=== PATIENT | female | born 1965 | race Caucasian/White ===

== ENCOUNTER 2018-09-14 17:23 | Emergency (ER) | payer BC ==
[~2018-09-14] VITALS: Ht 170.2 cm; Wt 94.1 kg
[~2018-09-14 17:23] MED LIST: ALBU6.7H INH; ANAS1TAB PO; ASPI-611 PO; CA C1TAB89 PO; HYDR-4383 PO; LANTUS SUBCUT; LOSA100T3 PO; MULT-342 PO; OMEP20CA10 PO; TRAZ-219 PO; ZOL50T PO
[2018-09-14 17:28] VITALS: BP 197/114
[2018-09-14] MEDS ORDERED: ipratropium/albuterol 3ml nebule NEB ONE (17:50)
[2018-09-14 17:59] LABS: BASOPHILS # (AUTO) 0.1 X10'3 (0-0.2); EOSINOPHILS # (AUTO) 0.2 X10'3 (0-0.9); EOSINOPHILS % (AUTO) 2.4 % (0-6); HEMATOCRIT 40.4 % (35.0-45.0); HEMOGLOBIN 13.5 g/dl (12.0-16.0); LYMPHOCYTES # (AUTO) 2.3 X10'3 (1.1-4.8); LYMPHOCYTES % (AUTO) 35.8 % (21-51); MEAN CORPUSCULAR HEMOGLOBIN 26.8 PG (27.0-31.0); MEAN CORPUSCULAR HGB CONC 33.4 g/dL (33.0-36.5); MEAN CORPUSCULAR VOLUME 80.2 FL (78-98); MONOCYTES # (AUTO) 0.5 X10'3 (0-0.9); MONOCYTES % (AUTO) 7.7 % (2-12); NEUTROPHILS # (AUTO) 3.4 X10'3 (1.8-7.7); NEUTROPHILS % (AUTO) 53.1 % (42-75); PLATELET COUNT 214 X10'3 (140-440); RED BLOOD COUNT 5.04 X10'6 (4.20-5.60); RED CELL DISTRIBUTION WIDTH 13.5 % (11.5-14.5); WHITE BLOOD COUNT 6.5 X10'3 (4.5-11.0)
[2018-09-14 18:12] LABS: ALANINE AMINOTRANSFERASE 23 U/L (12-78); ALBUMIN 3.6 G/DL (3.4-5.0); ALKALINE PHOSPHATASE 105 IU/L (46-116); ANION GAP 11 (8-16); ASPARTATE AMINO TRANSFERASE 13 U/L (10-37); BILIRUBIN,TOTAL 0.4 MG/DL (0.1-1.0); BLOOD UREA NITROGEN 14 MG/DL (7-18); BUN/CREATININE RATIO 14.1 (6.6-38.0); CALCIUM 8.6 MG/DL (8.5-10.1); CHLORIDE 105 MMOL/L (99-107); CREATININE 0.99 MG/DL (0.40-0.90); GLUCOSE 208 MG/DL (70-104); POTASSIUM 3.3 MMOL/L (3.5-5.1); SODIUM 141 MMOL/L (135-145); TOTAL CARBON DIOXIDE 24.6 MMOL/L (24-32); TOTAL PROTEIN 7.3 G/DL (6.4-8.2); eGFR 58 ML/MIN
[2018-09-14] MEDS ORDERED: AZIT250T83 PO (19:04)
[2018-09-14] MEDS ORDERED: PRED20TA PO (19:04)
[2018-09-14] MEDS ORDERED: prednisone 10mg tablet PO SCH (19:05)
[2018-09-14] MEDS ORDERED: predniSONE 20 mg tablet PO ONE (19:10)
[2018-09-14] MEDS ORDERED: GUAI237S46 PO (19:16)
[2018-09-14] MEDS ORDERED: BENZ-16 PO (19:16)
== END 2018-09-14 20:08 | disposition home or self-care (01) ==
LOC: ER 17:23
DX: R05 Cough (principal); R06.00 Dyspnea, unspecified; R19.7 Diarrhea, unspecified; R50.9 Fever, unspecified; I10 Essential (primary) hypertension; E11.9 Type 2 diabetes mellitus without complications; J45.909 Unspecified asthma, uncomplicated; Z90.710 Acquired absence of both cervix and uterus; Z88.2 Allergy status to sulfonamides; Z88.8 Allergy status to other drugs, medicaments and biological substances; Z79.82 Long term (current) use of aspirin; Z79.4 Long term (current) use of insulin; Z79.899 Other long term (current) drug therapy; Z87.891 Personal history of nicotine dependence
CPT/HCPCS: 36415; 71046; 80053; 83605; 85025; 87040; 94640; 94760; 99284; J7512

== ENCOUNTER 2019-02-20 20:11 | Emergency (ER) | payer BC ==
[~2019-02-20] VITALS: Ht 170.2 cm; Wt 94.5 kg
[~2019-02-20 20:11] MED LIST changes: -ALBU6.7H INH; +ALBU6.7H9 INH; -OMEP20CA10 PO; +OMEP20CA11 PO; +SERT-153 PO; -ZOL50T PO
[2019-02-20 20:43] LABS: BASOPHILS # (AUTO) 0.1 X10'3 (0-0.2); BASOPHILS % (AUTO) 0.6 % (0-1); EOSINOPHILS # (AUTO) 0.2 X10'3 (0-0.9); EOSINOPHILS % (AUTO) 1.3 % (0-6); HEMATOCRIT 41.5 % (35.0-45.0); HEMOGLOBIN 13.8 g/dl (12.0-16.0); LYMPHOCYTES # (AUTO) 2.7 X10'3 (1.1-4.8); LYMPHOCYTES % (AUTO) 21.7 % (21-51); MEAN CORPUSCULAR HEMOGLOBIN 27.4 PG (27.0-31.0); MEAN CORPUSCULAR HGB CONC 33.3 g/dL (33.0-36.5); MEAN CORPUSCULAR VOLUME 82.1 FL (78-98); MEAN PLATELET VOLUME 8.4 FL (7.4-10.4); MONOCYTES # (AUTO) 0.9 X10'3 (0-0.9); MONOCYTES % (AUTO) 7.3 % (2-12); NEUTROPHILS # (AUTO) 8.7 X10'3 (1.8-7.7); NEUTROPHILS % (AUTO) 69.1 % (42-75); PLATELET COUNT 259 X10'3 (140-440); RED BLOOD COUNT 5.06 X10'6 (4.20-5.60); RED CELL DISTRIBUTION WIDTH 13.3 % (11.5-14.5); WHITE BLOOD COUNT 12.6 X10'3 (4.5-11.0)
[2019-02-20 20:45] LABS: CLARITY,URINE CLOUDY (Clear); COLOR,URINE Yellow (Yellow); UA COLLECTION TYPE CLN CATCH MIDSTREAM
[2019-02-20 20:46] LABS: URINE HCG NEGATIVE (NEG)
[2019-02-20 20:47] LABS: GLUCOSE, URINE NEGATIVE (Neg); KETONES,URINE TRACE mg/dl (Neg); LEUKOCYTE ESTERASE ,URINE SMALL (Neg); NITRITES, URINE NEGATIVE (Neg); OCCULT BLOOD,URINE MODERATE (Neg); PROTEIN,URINE 100 mg/dl (Neg)
[2019-02-20 20:52] LABS: BACTERIA,URINE 1+ /HPF (Neg); MUCUS STRANDS FEW /LPF (Neg); RBC,URINE 0-2 /HPF (0-2); SQUAMOUS EPITHELIAL CELL,UR MODERATE /LPF (FEW); WBC,URINE 30-50 /HPF (0-4)
[2019-02-20 20:59] LABS: ALANINE AMINOTRANSFERASE 28 U/L (12-78); ALBUMIN 3.9 G/DL (3.4-5.0); ALBUMIN/GLOBULIN RATIO 1.1 (1.1-1.5); ALKALINE PHOSPHATASE 104 IU/L (46-116); ANION GAP 12 (8-16); ASPARTATE AMINO TRANSFERASE 14 U/L (10-37); BILIRUBIN,TOTAL 0.6 MG/DL (0.1-1.0); BLOOD UREA NITROGEN 14 MG/DL (7-18); BUN/CREATININE RATIO 12.8 (6.6-38.0); CALCIUM 8.9 MG/DL (8.5-10.1); CHLORIDE 105 MMOL/L (99-107); CREATININE 1.09 MG/DL (0.40-0.90); GLUCOSE 157 MG/DL (70-104); POTASSIUM 3.2 MMOL/L (3.5-5.1); SODIUM 144 MMOL/L (135-145); TOTAL CARBON DIOXIDE 27.1 MMOL/L (24-32); TOTAL PROTEIN 7.5 G/DL (6.4-8.2); eGFR 52 ML/MIN
[2019-02-20 22:30] VITALS: BP_SYST 191
[2019-02-20] MEDS ORDERED: normal saline 1000ML IV soln IVB ONE (22:40)
[2019-02-20 22:43] LABS: MAGNESIUM 1.8 MG/DL (1.5-2.4)
[2019-02-20 22:45] LABS: ETHANOL < 0.010 GM/DL (0.0-0.010)
[2019-02-20] MEDS ORDERED: morphine 4 MG/ML inj SYRINge IV ONE (22:45)
[2019-02-20] MEDS ORDERED: amLODIPine 5mg tablet PO ONE (22:45)
[2019-02-20] MEDS ORDERED: magnesium oxide 400mg tablet PO ONE (22:45)
[2019-02-20] MEDS ORDERED: potassium Cl 20 mEq SR tablet PO ONE (22:45)
[2019-02-20] MEDS ORDERED: magnesium 2GM in 50ml NS 50 ML IV ONE (22:45)
[2019-02-20] MEDS ORDERED: metroNIDAZOLE 500mg tablet PO ONE (22:45)
[2019-02-20] MEDS ORDERED: morphine 2 MG/ML inj. syringe IV PRN (22:45)
[2019-02-20] MEDS ORDERED: ketorolac tromethamine 15mg/ml inj. IV ONE (22:45)
[2019-02-20] MEDS ORDERED: ciprofloxacin 250mg tablet PO ONE (22:45)
[2019-02-20] MEDS ORDERED: METR250T PO (22:46)
[2019-02-20] MEDS ORDERED: CIPR-230 PO (22:46)
--- NOTE | 2019-02-20 23:13 | NUR ---
Magnesium hung at ordered rate and checked with Dr. Mcmahon if he wanted it to run over 2 hours. He wants the magnesium given as a bolus. Dr. Mcmahon at bedside performing magnesium bolus.
[2019-02-20 23:59] VITALS: BP_DIAS 172
== END 2019-02-21 00:03 | disposition home or self-care (01) ==
LOC: ER 20:11
DX: K57.92 Diverticulitis of intestine, part unspecified, without perforation or abscess without bleeding (principal); E87.6 Hypokalemia; I10 Essential (primary) hypertension; E11.9 Type 2 diabetes mellitus without complications; Z90.710 Acquired absence of both cervix and uterus; Z85.3 Personal history of malignant neoplasm of breast; Z88.2 Allergy status to sulfonamides; Z88.8 Allergy status to other drugs, medicaments and biological substances; Z79.82 Long term (current) use of aspirin; Z79.4 Long term (current) use of insulin; Z79.899 Other long term (current) drug therapy
CPT/HCPCS: 36415; 80053; 80320; 81001; 81025; 83735; 85025; 85610; 87077; 87088; 87186; 96365; 96375; 99284; J1885; J2270; J3475; J7030; J3490

== ENCOUNTER 2019-02-23 19:32 | Emergency (ER) | payer BC ==
[~2019-02-23] VITALS: Ht 170.2 cm; Wt 95.5 kg
[~2019-02-23 19:32] MED LIST changes: +CIPR-230 PO; +METR250T PO
[2019-02-23 19:39] VITALS: BP 176/87
[2019-02-23] MEDS ORDERED: HYDROcodone/acetaminophen 10/325mg tab PO STA (20:07)
--- NOTE | 2019-02-23 20:26 | NUR ---
pt did not want Mcgrady, tylenol, or ibuprofen. she would like to wait to speak with
== END 2019-02-23 22:12 | disposition home or self-care (01) ==
LOC: ER 19:33
DX: S92.511A Displaced fracture of proximal phalanx of right lesser toe(s), initial encounter for closed fracture (principal); R23.3 Spontaneous ecchymoses; I10 Essential (primary) hypertension; E11.9 Type 2 diabetes mellitus without complications; Z85.3 Personal history of malignant neoplasm of breast; Z90.710 Acquired absence of both cervix and uterus; Z98.890 Other specified postprocedural states; Z88.2 Allergy status to sulfonamides; Z88.8 Allergy status to other drugs, medicaments and biological substances; Z79.82 Long term (current) use of aspirin; Z79.4 Long term (current) use of insulin; Z79.899 Other long term (current) drug therapy; W22.8XXA Striking against or struck by other objects, initial encounter; Y93.89 Activity, other specified; Y92.89 Other specified places as the place of occurrence of the external cause; Y99.8 Other external cause status
CPT/HCPCS: 73660; 99284

== ENCOUNTER 2019-03-20 11:53 | Emergency (ER) | payer BC ==
[~2019-03-20] VITALS: Ht 170.2 cm; Wt 94.5 kg
[~2019-03-20 11:53] MED LIST changes: -METR250T PO
[2019-03-20] MEDS ORDERED: ALBU8.5H8 IH (13:25)
[2019-03-20] MEDS ORDERED: AMOX-580 PO (13:25)
[2019-03-20 13:50] VITALS: BP 186/102
== END 2019-03-20 13:57 | disposition home or self-care (01) ==
LOC: ER 11:54
DX: L02.31 Cutaneous abscess of buttock (principal); R05 Cough; F17.200 Nicotine dependence, unspecified, uncomplicated; I10 Essential (primary) hypertension; E11.9 Type 2 diabetes mellitus without complications; Z90.710 Acquired absence of both cervix and uterus; Z98.890 Other specified postprocedural states; Z85.3 Personal history of malignant neoplasm of breast; Z88.2 Allergy status to sulfonamides; Z88.8 Allergy status to other drugs, medicaments and biological substances; Z79.4 Long term (current) use of insulin; Z79.899 Other long term (current) drug therapy
CPT/HCPCS: 99283

== ENCOUNTER 2019-03-23 16:41 | Emergency (ER) | payer BC ==
[~2019-03-23] VITALS: Ht 170.2 cm; Wt 94.0 kg
[~2019-03-23 16:41] MED LIST changes: +ALBU8.5H8 IH; +AMOX-580 PO
[2019-03-23 16:44] VITALS: BP 191/95
== END 2019-03-23 17:20 | disposition home or self-care (01) ==
LOC: ER 16:41
DX: L02.31 Cutaneous abscess of buttock (principal); Z48.00 Encounter for change or removal of nonsurgical wound dressing; I10 Essential (primary) hypertension; E11.9 Type 2 diabetes mellitus without complications; C50.919 Malignant neoplasm of unspecified site of unspecified female breast; Z88.2 Allergy status to sulfonamides; Z88.8 Allergy status to other drugs, medicaments and biological substances; Z79.2 Long term (current) use of antibiotics; Z79.82 Long term (current) use of aspirin; Z79.4 Long term (current) use of insulin; Z79.899 Other long term (current) drug therapy; Z90.710 Acquired absence of both cervix and uterus; Z98.890 Other specified postprocedural states
CPT/HCPCS: 99281

== ENCOUNTER 2019-06-06 15:27 | Emergency (ER) | payer BC ==
[~2019-06-06] VITALS: Ht 170.2 cm; Wt 94.5 kg
[~2019-06-06 15:27] MED LIST changes: -AMOX-580 PO; -CIPR-230 PO
[2019-06-06 15:31] VITALS: BP 146/95
== END 2019-06-06 17:10 | disposition home or self-care (01) ==
LOC: ER 15:27
DX: I83.93 Asymptomatic varicose veins of bilateral lower extremities (principal); I10 Essential (primary) hypertension; E11.9 Type 2 diabetes mellitus without complications; Z90.710 Acquired absence of both cervix and uterus; Z98.890 Other specified postprocedural states; Z85.3 Personal history of malignant neoplasm of breast; Z88.2 Allergy status to sulfonamides; Z88.1 Allergy status to other antibiotic agents; Z79.82 Long term (current) use of aspirin; Z79.4 Long term (current) use of insulin; Z79.899 Other long term (current) drug therapy; Z88.8 Allergy status to other drugs, medicaments and biological substances
CPT/HCPCS: 93971; 99284

== ENCOUNTER 2020-08-05 12:53 | Emergency (ER) | payer BC, MEDICAID ==
[~2020-08-05] VITALS: Ht 167.6 cm; Wt 88.6 kg
[~2020-08-05 12:53] MED LIST changes: -OMEP20CA11 PO; +OMEP20CA15 PO; -TRAZ-219 PO; +TRAZ-256 PO
[2020-08-05 13:33] LABS: BASOPHILS % (AUTO) 0.5 % (0-1); EOSINOPHILS # (AUTO) 0.1 X10'3 (0-0.9); EOSINOPHILS % (AUTO) 1.4 % (0-6); HEMATOCRIT 40.5 % (35.0-45.0); HEMOGLOBIN 13.9 g/dl (12.0-16.0); LYMPHOCYTES % (AUTO) 24.8 % (21-51); MEAN CORPUSCULAR HEMOGLOBIN 27.8 PG (27.0-31.0); MEAN CORPUSCULAR HGB CONC 34.2 g/dL (33.0-36.5); MEAN CORPUSCULAR VOLUME 81.2 FL (78-98); MEAN PLATELET VOLUME 7.9 FL (7.4-10.4); MONOCYTES # (AUTO) 0.7 X10'3 (0-0.9); MONOCYTES % (AUTO) 8.8 % (2-12); NEUTROPHILS # (AUTO) 5.3 X10'3 (1.8-7.7); NEUTROPHILS % (AUTO) 64.5 % (42-75); PLATELET COUNT 234 X10'3 (140-440); RED BLOOD COUNT 4.99 X10'6 (4.20-5.60); RED CELL DISTRIBUTION WIDTH 13.5 % (11.5-14.5); WHITE BLOOD COUNT 8.2 X10'3 (4.5-11.0)
[2020-08-05 13:51] LABS: ALANINE AMINOTRANSFERASE 21 U/L (12-78); ALBUMIN 3.8 G/DL (3.4-5.0); ALKALINE PHOSPHATASE 98 IU/L (46-116); ANION GAP 6 (8-16); ASPARTATE AMINO TRANSFERASE 10 U/L (10-37); BILIRUBIN,TOTAL 0.5 MG/DL (0.1-1.0); BLOOD UREA NITROGEN 14 MG/DL (7-18); BUN/CREATININE RATIO 18.9 (6.6-38.0); CALCIUM 9.4 MG/DL (8.5-10.1); CHLORIDE 104 MMOL/L (99-107); CREATININE 0.74 MG/DL (0.40-0.90); GLUCOSE 141 MG/DL (70-104); POTASSIUM 3.9 MMOL/L (3.5-5.1); SODIUM 140 MMOL/L (135-145); TOTAL CARBON DIOXIDE 29.8 MMOL/L (24-32); TOTAL PROTEIN 7.6 G/DL (6.4-8.2); eGFR 81 ML/MIN
[2020-08-05 14:46] VITALS: BP 156/96
== END 2020-08-05 14:40 | disposition home or self-care (01) ==
LOC: ER 12:55
DX: R07.89 Other chest pain (principal); R51.9 Headache, unspecified; R42 Dizziness and giddiness; I10 Essential (primary) hypertension; E11.9 Type 2 diabetes mellitus without complications; F12.90 Cannabis use, unspecified, uncomplicated; Z85.3 Personal history of malignant neoplasm of breast; Z90.710 Acquired absence of both cervix and uterus; Z87.891 Personal history of nicotine dependence; Z88.2 Allergy status to sulfonamides; Z88.8 Allergy status to other drugs, medicaments and biological substances; Z79.4 Long term (current) use of insulin; Z79.82 Long term (current) use of aspirin; Z79.899 Other long term (current) drug therapy
CPT/HCPCS: 36415; 71045; 80053; 83880; 84484; 85025; 93005; 99285

== ENCOUNTER 2020-09-28 20:20 | Emergency (ER) | payer OTHER, MEDICAID ==
[~2020-09-28] VITALS: Ht 167.6 cm; Wt 95.5 kg
[2020-09-28 21:24] LABS: BASOPHILS # (AUTO) 0.1 X10'3 (0-0.2); BASOPHILS % (AUTO) 0.5 % (0-1); EOSINOPHILS # (AUTO) 0.2 X10'3 (0-0.9); EOSINOPHILS % (AUTO) 1.5 % (0-6); HEMATOCRIT 39.2 % (35.0-45.0); HEMOGLOBIN 13.2 g/dl (12.0-16.0); LYMPHOCYTES # (AUTO) 2.8 X10'3 (1.1-4.8); LYMPHOCYTES % (AUTO) 23.7 % (21-51); MEAN CORPUSCULAR HEMOGLOBIN 27.5 PG (27.0-31.0); MEAN CORPUSCULAR HGB CONC 33.6 g/dL (33.0-36.5); MEAN CORPUSCULAR VOLUME 81.8 FL (78-98); MEAN PLATELET VOLUME 8.2 FL (7.4-10.4); MONOCYTES # (AUTO) 1.1 X10'3 (0-0.9); MONOCYTES % (AUTO) 9.1 % (2-12); NEUTROPHILS # (AUTO) 7.8 X10'3 (1.8-7.7); NEUTROPHILS % (AUTO) 65.2 % (42-75); PLATELET COUNT 250 X10'3 (140-440); RED BLOOD COUNT 4.79 X10'6 (4.20-5.60); RED CELL DISTRIBUTION WIDTH 13.3 % (11.5-14.5)
[2020-09-28 21:32] LABS: CLARITY,URINE CLEAR (Clear); COLOR,URINE YELLOW (Yellow); GLUCOSE, URINE NEGATIVE (Neg); KETONES,URINE NEGATIVE (Neg); LEUKOCYTE ESTERASE ,URINE SMALL (Neg); NITRITES, URINE NEGATIVE (Neg); OCCULT BLOOD,URINE MODERATE (Neg); PH,URINE 5.5 (4.8-8.0); PROTEIN,URINE NEGATIVE (Neg); UROBILINOGEN,URINE 0.2 E.U/dL (0.2-1.0)
[2020-09-28] MEDS ORDERED: ondansetron 4mg rapidly disintigrating tab PO ONE (21:40)
[2020-09-28] MEDS: HYDROcodone/acetaminophen 10/325mg tab PO ONE ×2 (21:40→22:09)
[2020-09-28 21:41] LABS: UA COLLECTION TYPE CLN CATCH MIDSTREAM
[2020-09-28 21:42] LABS: ALANINE AMINOTRANSFERASE 21 U/L (12-78); ALBUMIN 3.6 G/DL (3.4-5.0); ALKALINE PHOSPHATASE 103 IU/L (46-116); ANION GAP 10 (8-16); ASPARTATE AMINO TRANSFERASE 10 U/L (10-37); BILIRUBIN,TOTAL 0.4 MG/DL (0.1-1.0); BLOOD UREA NITROGEN 14 MG/DL (7-18); BUN/CREATININE RATIO 13.1 (6.6-38.0); CHLORIDE 105 MMOL/L (99-107); CREATININE 1.07 MG/DL (0.40-0.90); GLUCOSE 187 MG/DL (70-104); LIPASE 73 U/L (73-393); POTASSIUM 3.5 MMOL/L (3.5-5.1); SODIUM 143 MMOL/L (135-145); TOTAL CARBON DIOXIDE 27.6 MMOL/L (24-32); TOTAL PROTEIN 7.3 G/DL (6.4-8.2); eGFR 53 ML/MIN
[2020-09-28 21:42] LABS: BACTERIA,URINE FEW /HPF (Neg)
[2020-09-28] MEDS ORDERED: iohexol 300mg/ml 100ml inj. ONE (21:42)
[2020-09-28 21:43] LABS: CAL OXALATE CRYSTALS FEW /HPF (NEGATIVE); SQUAMOUS EPITHELIAL CELL,UR FEW /LPF (FEW); WBC CLUMPS,URINE FEW /HPF (NEGATIVE)
[2020-09-28] MEDS ORDERED: morphine 4 MG/ML inj SYRINge IV ONE ×2 (22:15→23:45)
--- NOTE | 2020-09-28 23:38 | NUR ---
TONI Poon at bedside discussing results of tests, labs.
[2020-09-28] MEDS ORDERED: METR-159 PO (23:47)
[2020-09-28] MEDS ORDERED: TRAM50TA2 PO (23:47)
[2020-09-28] MEDS ORDERED: CIPR-259 PO (23:47)
[2020-09-29 00:02] VITALS: BP 168/100
== END 2020-09-29 03:44 | disposition home or self-care (01) ==
LOC: ER 20:22
DX: K57.92 Diverticulitis of intestine, part unspecified, without perforation or abscess without bleeding (principal); N39.0 Urinary tract infection, site not specified; E27.9 Disorder of adrenal gland, unspecified; I10 Essential (primary) hypertension; E11.9 Type 2 diabetes mellitus without complications; F12.90 Cannabis use, unspecified, uncomplicated; Z98.890 Other specified postprocedural states; Z88.2 Allergy status to sulfonamides; Z88.8 Allergy status to other drugs, medicaments and biological substances; Z88.6 Allergy status to analgesic agent; Z79.899 Other long term (current) drug therapy; Z79.4 Long term (current) use of insulin
CPT/HCPCS: 36415; 74177; 80053; 81001; 83690; 85025; 87077; 87088; 87186; 96374; 96376; 99285; J2270; Q9967; 96375

== ENCOUNTER 2020-10-18 11:33 | Emergency (ER) | payer MEDICAID ==
[~2020-10-18] VITALS: Ht 170.2 cm; Wt 89.0 kg
[2020-10-18 12:13] LABS: BASOPHILS # (AUTO) 0.1 X10'3 (0-0.2); BASOPHILS % (AUTO) 0.7 % (0-1); EOSINOPHILS # (AUTO) 0.2 X10'3 (0-0.9); EOSINOPHILS % (AUTO) 2.2 % (0-6); HEMATOCRIT 41.5 % (35.0-45.0); HEMOGLOBIN 13.8 g/dl (12.0-16.0); LYMPHOCYTES # (AUTO) 1.9 X10'3 (1.1-4.8); LYMPHOCYTES % (AUTO) 21.4 % (21-51); MEAN CORPUSCULAR HEMOGLOBIN 27.5 PG (27.0-31.0); MEAN CORPUSCULAR HGB CONC 33.2 g/dL (33.0-36.5); MEAN CORPUSCULAR VOLUME 82.7 FL (78-98); MEAN PLATELET VOLUME 7.9 FL (7.4-10.4); MONOCYTES # (AUTO) 0.6 X10'3 (0-0.9); MONOCYTES % (AUTO) 6.7 % (2-12); NEUTROPHILS # (AUTO) 6.2 X10'3 (1.8-7.7); PLATELET COUNT 249 X10'3 (140-440); RED BLOOD COUNT 5.01 X10'6 (4.20-5.60); RED CELL DISTRIBUTION WIDTH 13.3 % (11.5-14.5)
[2020-10-18 12:27] LABS: ALANINE AMINOTRANSFERASE 21 U/L (12-78); ALBUMIN 3.6 G/DL (3.4-5.0); ALBUMIN/GLOBULIN RATIO 0.9 (1.1-1.5); ALKALINE PHOSPHATASE 89 IU/L (46-116); ANION GAP 9 (8-16); ASPARTATE AMINO TRANSFERASE 16 U/L (10-37); BILIRUBIN,TOTAL 0.5 MG/DL (0.1-1.0); BLOOD UREA NITROGEN 11 MG/DL (7-18); BUN/CREATININE RATIO 12.9 (6.6-38.0); CALCIUM 8.6 MG/DL (8.5-10.1); CHLORIDE 105 MMOL/L (99-107); CREATININE 0.85 MG/DL (0.40-0.90); GLUCOSE 152 MG/DL (70-104); LIPASE 56 U/L (73-393); POTASSIUM 3.8 MMOL/L (3.5-5.1); SODIUM 143 MMOL/L (135-145); TOTAL PROTEIN 7.6 G/DL (6.4-8.2); eGFR 69 ML/MIN
[2020-10-18] MEDS ORDERED: benzonatate 100mg capsule PO ONE (15:15)
[2020-10-18] MEDS ORDERED: guaiFENesin/DM 10ml UD oral syrup PO ONE (15:15)
[2020-10-18] MEDS ORDERED: dicyclomine 10 MG capsule PO ONE (15:15)
[2020-10-18] MEDS ORDERED: BENZ-16 PO (16:50)
[2020-10-18] MEDS ORDERED: ROBCFL PO (16:50)
[2020-10-18 16:55] LABS: CLARITY,URINE SLIGHTLY CLOUDY (Clear); COLOR,URINE YELLOW (Yellow); GLUCOSE, URINE NEGATIVE (Neg); KETONES,URINE NEGATIVE (Neg); LEUKOCYTE ESTERASE ,URINE SMALL (Neg); NITRITES, URINE NEGATIVE (Neg); OCCULT BLOOD,URINE SMALL (Neg); PH,URINE 5.5 (4.8-8.0); PROTEIN,URINE NEGATIVE (Neg); UROBILINOGEN,URINE 0.2 E.U/dL (0.2-1.0)
[2020-10-18 16:56] LABS: UA COLLECTION TYPE CLN CATCH MIDSTREAM
[2020-10-18 17:02] LABS: BACTERIA,URINE FEW /HPF (Neg); MUCUS STRANDS MODERATE /LPF (Neg); RBC,URINE 0-2 /HPF (0-2); SQUAMOUS EPITHELIAL CELL,UR FEW /LPF (FEW); TRANSITIONAL EPI CELLS,URINE FEW /HPF; WBC,URINE 20-30 /HPF (0-4)
[2020-10-18 17:13] VITALS: BP 154/92
== END 2020-10-18 17:14 | disposition home or self-care (01) ==
LOC: ER 11:35
DX: R10.33 Periumbilical pain (principal); J40 Bronchitis, not specified as acute or chronic; Z20.822 Contact with and (suspected) exposure to COVID-19; R53.83 Other fatigue; I10 Essential (primary) hypertension; E11.9 Type 2 diabetes mellitus without complications; F12.90 Cannabis use, unspecified, uncomplicated; Z90.710 Acquired absence of both cervix and uterus; Z98.890 Other specified postprocedural states; Z85.3 Personal history of malignant neoplasm of breast; Z88.2 Allergy status to sulfonamides; Z88.5 Allergy status to narcotic agent; Z88.6 Allergy status to analgesic agent; Z79.82 Long term (current) use of aspirin; Z79.4 Long term (current) use of insulin; Z79.899 Other long term (current) drug therapy
CPT/HCPCS: 36415; 71045; 80053; 81001; 83690; 85025; 87088; 87635; 99284; C9803

== ENCOUNTER 2020-11-20 16:06 | Emergency (ER) | payer MEDICAID ==
[~2020-11-20] VITALS: Ht 167.6 cm; Wt 93.2 kg
[2020-11-20 16:59] LABS: BASOPHILS # (AUTO) 0.1 X10'3 (0-0.2); BASOPHILS % (AUTO) 0.5 % (0-1); EOSINOPHILS % (AUTO) 0.3 % (0-6); HEMATOCRIT 41.3 % (35.0-45.0); HEMOGLOBIN 13.8 g/dl (12.0-16.0); LYMPHOCYTES # (AUTO) 2.1 X10'3 (1.1-4.8); LYMPHOCYTES % (AUTO) 14.4 % (21-51); MEAN CORPUSCULAR HEMOGLOBIN 27.6 PG (27.0-31.0); MEAN CORPUSCULAR HGB CONC 33.4 g/dL (33.0-36.5); MEAN CORPUSCULAR VOLUME 82.6 FL (78-98); MEAN PLATELET VOLUME 8.1 FL (7.4-10.4); MONOCYTES # (AUTO) 1.4 X10'3 (0-0.9); MONOCYTES % (AUTO) 9.7 % (2-12); NEUTROPHILS # (AUTO) 10.9 X10'3 (1.8-7.7); NEUTROPHILS % (AUTO) 75.1 % (42-75); PLATELET COUNT 266 X10'3 (140-440); RED CELL DISTRIBUTION WIDTH 13.4 % (11.5-14.5); WHITE BLOOD COUNT 14.6 X10'3 (4.5-11.0)
[2020-11-20 17:15] LABS: ALANINE AMINOTRANSFERASE 13 U/L (12-78); ALBUMIN 3.6 G/DL (3.4-5.0); ALBUMIN/GLOBULIN RATIO 0.8 (1.1-1.5); ALKALINE PHOSPHATASE 94 IU/L (46-116); ANION GAP 11 (8-16); ASPARTATE AMINO TRANSFERASE 10 U/L (10-37); BILIRUBIN,TOTAL 1.2 MG/DL (0.1-1.0); BLOOD UREA NITROGEN 13 MG/DL (7-18); BUN/CREATININE RATIO 12.9 (6.6-38.0); CALCIUM 9.2 MG/DL (8.5-10.1); CHLORIDE 101 MMOL/L (99-107); CREATININE 1.01 MG/DL (0.40-0.90); GLUCOSE 120 MG/DL (70-104); LIPASE < 50 U/L (73-393); POTASSIUM 3.6 MMOL/L (3.5-5.1); SODIUM 141 MMOL/L (135-145); eGFR 57 ML/MIN
[2020-11-20 17:18] LABS: CLARITY,URINE SLIGHTLY CLOUDY (Clear); COLOR,URINE YELLOW (Yellow); GLUCOSE, URINE NEGATIVE (Neg); KETONES,URINE NEGATIVE (Neg); LEUKOCYTE ESTERASE ,URINE MODERATE (Neg); NITRITES, URINE POSITIVE (Neg); OCCULT BLOOD,URINE LARGE (Neg); PROTEIN,URINE 30 mg/dl (Neg); UROBILINOGEN,URINE 0.2 E.U/dL (0.2-1.0)
[2020-11-20 17:22] LABS: UA COLLECTION TYPE CLN CATCH MIDSTREAM
[2020-11-20 17:32] LABS: BACTERIA,URINE 2+ /HPF (Neg); WBC,URINE TNTC /HPF (0-4)
[2020-11-20 17:33] LABS: MUCUS STRANDS FEW /LPF (Neg); SQUAMOUS EPITHELIAL CELL,UR FEW /LPF (FEW); WBC CLUMPS,URINE MODERATE /HPF (NEGATIVE)
[2020-11-20] MEDS ORDERED: normal saline 1000ML IV soln IVB ONE (18:05)
[2020-11-20] MEDS ORDERED: CefTRIAXone/D5W-Rocephin 1gm 50 ML IV ONE (18:05)
--- NOTE | 2020-11-20 19:39 | NUR ---
TO CT SCAN
[2020-11-20] MEDS ORDERED: morphine 4 MG/ML inj SYRINge IV PRN (20:20)
[2020-11-20] MEDS ORDERED: ondansetron/PF 4mg/2ml inj IV ONE (20:20)
[2020-11-20 20:54] VITALS: BP 154/86
[2020-11-20] MEDS ORDERED: CEPH-585 PO (21:26)
== END 2020-11-20 21:56 | disposition home or self-care (01) ==
LOC: ER 16:06
DX: N10 Acute pyelonephritis (principal); R10.32 Left lower quadrant pain; R19.7 Diarrhea, unspecified; R11.2 Nausea with vomiting, unspecified; I10 Essential (primary) hypertension; E11.9 Type 2 diabetes mellitus without complications; F12.90 Cannabis use, unspecified, uncomplicated; Z85.3 Personal history of malignant neoplasm of breast; Z90.710 Acquired absence of both cervix and uterus; Z98.890 Other specified postprocedural states; Z88.2 Allergy status to sulfonamides; Z88.8 Allergy status to other drugs, medicaments and biological substances; Z79.82 Long term (current) use of aspirin; Z79.4 Long term (current) use of insulin; Z79.2 Long term (current) use of antibiotics; Z79.899 Other long term (current) drug therapy
CPT/HCPCS: 36415; 74176; 80053; 81001; 83605; 83690; 84145; 85025; 87077; 87088; 87186; 96365; 96375; 99284; J0696; J2270; J2405; J7030

== ENCOUNTER 2021-07-03 16:49 | Emergency (ER) | payer MEDICAID ==
[~2021-07-03] VITALS: Ht 167.6 cm; Wt 204.0 kg
[~2021-07-03 16:49] MED LIST changes: +ALBU8.5H17 IH; -ALBU8.5H8 IH
[2021-07-03 17:34] LABS: BASOPHILS # (AUTO) 0.1 X10'3 (0-0.2); BASOPHILS % (AUTO) 0.5 % (0-1); EOSINOPHILS # (AUTO) 0.3 X10'3 (0-0.9); EOSINOPHILS % (AUTO) 2.4 % (0-6); HEMATOCRIT 42.6 % (35.0-45.0); HEMOGLOBIN 14.4 g/dl (12.0-16.0); LYMPHOCYTES # (AUTO) 1.3 X10'3 (1.1-4.8); LYMPHOCYTES % (AUTO) 12.4 % (21-51); MEAN CORPUSCULAR HEMOGLOBIN 27.5 PG (27.0-31.0); MEAN CORPUSCULAR HGB CONC 33.7 g/dL (33.0-36.5); MEAN CORPUSCULAR VOLUME 81.6 FL (78-98); MEAN PLATELET VOLUME 8.1 FL (7.4-10.4); MONOCYTES # (AUTO) 0.9 X10'3 (0-0.9); MONOCYTES % (AUTO) 8.6 % (2-12); NEUTROPHILS % (AUTO) 76.1 % (42-75); PLATELET COUNT 221 X10'3 (140-440); RED BLOOD COUNT 5.22 X10'6 (4.20-5.60); RED CELL DISTRIBUTION WIDTH 13.3 % (11.5-14.5); WHITE BLOOD COUNT 10.5 X10'3 (4.5-11.0)
[2021-07-03] MEDS ORDERED: acetaminophen 325mg tablet PO ONE (17:45)
[2021-07-03 17:53] LABS: ALANINE AMINOTRANSFERASE 14 U/L (12-78); ALBUMIN 3.6 G/DL (3.4-5.0); ALBUMIN/GLOBULIN RATIO 0.9 (1.1-1.5); ALKALINE PHOSPHATASE 102 IU/L (46-116); ANION GAP 9 (8-16); ASPARTATE AMINO TRANSFERASE 9 U/L (10-37); BILIRUBIN,TOTAL 0.9 MG/DL (0.1-1.0); BLOOD UREA NITROGEN 12 MG/DL (7-18); BUN/CREATININE RATIO 14.1 (6.6-38.0); CHLORIDE 105 MMOL/L (99-107); CREATININE 0.85 MG/DL (0.40-0.90); GLUCOSE 128 MG/DL (70-104); POTASSIUM 3.7 MMOL/L (3.5-5.1); SODIUM 141 MMOL/L (135-145); TOTAL CARBON DIOXIDE 27.5 MMOL/L (24-32); TOTAL PROTEIN 7.7 G/DL (6.4-8.2); eGFR 69 ML/MIN
[2021-07-03 18:01] VITALS: BP 173/110
[2021-07-03 18:55] LABS: D-DIMER 1.28 MG/L FEU (0-0.50)
[2021-07-03] MEDS ORDERED: predniSONE 20 mg tablet PO ONE (18:55)
[2021-07-03] MEDS ORDERED: ipratropium/albuterol 3ml nebule NEB ONE (18:55)
--- NOTE | 2021-07-03 19:00 | NUR ---
pt not in RAP or in lobby. pt due for CT scan and medication
[2021-07-03] MEDS ORDERED: iohexol 350MG/ML 100ml bottle IV ONE (19:06)
--- NOTE | 2021-07-03 19:21 | NUR ---
pt not in RAP or lobby. second attempt
--- NOTE | 2021-07-03 19:31 | NUR ---
third call. pt not in RAP or lobby. notified. pt eloped
== END 2021-07-03 19:33 | disposition left against medical advice (07) ==
LOC: ER 16:51
DX: R06.02 Shortness of breath (principal); Z20.822 Contact with and (suspected) exposure to COVID-19; R05.9 Cough, unspecified; R51.9 Headache, unspecified; I10 Essential (primary) hypertension; E11.9 Type 2 diabetes mellitus without complications; F12.90 Cannabis use, unspecified, uncomplicated; Z90.710 Acquired absence of both cervix and uterus; Z85.3 Personal history of malignant neoplasm of breast; Z98.890 Other specified postprocedural states; Z88.2 Allergy status to sulfonamides; Z88.8 Allergy status to other drugs, medicaments and biological substances; Z79.82 Long term (current) use of aspirin; Z79.4 Long term (current) use of insulin; Z79.899 Other long term (current) drug therapy
CPT/HCPCS: 36415; 71045; 80053; 83880; 84484; 85025; 85379; 87635; 93005; 99285; C9803; Q9967

== ENCOUNTER 2021-11-14 14:57 | Emergency (ER) | payer MEDICAID ==
[~2021-11-14] VITALS: Ht 167.6 cm; Wt 94.1 kg
[2021-11-14 15:55] LABS: BASOPHILS % (AUTO) 0.5 % (0-1); EOSINOPHILS # (AUTO) 0.3 X10'3 (0-0.9); EOSINOPHILS % (AUTO) 4.2 % (0-6); HEMATOCRIT 44.4 % (35.0-45.0); HEMOGLOBIN 14.8 g/dl (12.0-16.0); LYMPHOCYTES % (AUTO) 29.4 % (21-51); MEAN CORPUSCULAR HEMOGLOBIN 27.2 PG (27.0-31.0); MEAN CORPUSCULAR HGB CONC 33.3 g/dL (33.0-36.5); MEAN CORPUSCULAR VOLUME 81.9 FL (78-98); MEAN PLATELET VOLUME 8.3 FL (7.4-10.4); MONOCYTES # (AUTO) 0.6 X10'3 (0-0.9); MONOCYTES % (AUTO) 8.1 % (2-12); NEUTROPHILS % (AUTO) 57.8 % (42-75); PLATELET COUNT 204 X10'3 (140-440); RED BLOOD COUNT 5.42 X10'6 (4.20-5.60); RED CELL DISTRIBUTION WIDTH 13.5 % (11.5-14.5); WHITE BLOOD COUNT 6.9 X10'3 (4.5-11.0)
[2021-11-14 16:03] LABS: ALANINE AMINOTRANSFERASE 14 U/L (12-78); ALBUMIN 3.6 G/DL (3.4-5.0); ALBUMIN/GLOBULIN RATIO 0.9 (1.1-1.5); ALKALINE PHOSPHATASE 100 IU/L (46-116); ANION GAP 8 (8-16); ASPARTATE AMINO TRANSFERASE 13 U/L (10-37); BILIRUBIN,TOTAL 0.6 MG/DL (0.1-1.0); BLOOD UREA NITROGEN 14 MG/DL (7-18); BUN/CREATININE RATIO 16.1 (6.6-38.0); CALCIUM 8.9 MG/DL (8.5-10.1); CHLORIDE 105 MMOL/L (99-107); CREATININE 0.87 MG/DL (0.40-0.90); GLUCOSE 167 MG/DL (70-104); POTASSIUM 3.7 MMOL/L (3.5-5.1); SODIUM 142 MMOL/L (135-145); TOTAL CARBON DIOXIDE 28.6 MMOL/L (24-32); TOTAL PROTEIN 7.7 G/DL (6.4-8.2); eGFR 67 ML/MIN
[2021-11-14] MEDS ORDERED: methylPREDNISolone sod succ 125mg/2ml vial IV ONE (16:50)
[2021-11-14] MEDS ORDERED: ipratropium/albuterol 3ml nebule NEB ONE (16:50)
[2021-11-14 17:05] LABS: D-DIMER 0.23 MG/L FEU (0-0.50)
[2021-11-14] MEDS ORDERED: ALBU6.7H9 INH ×2 (19:12)
[2021-11-14] MEDS ORDERED: AMLO10TA PO (19:36)
[2021-11-14] MEDS ORDERED: PANT-47 PO (19:36)
[2021-11-14] MEDS ORDERED: INSU100I31 SQ (19:36)
[2021-11-14] MEDS ORDERED: LOSA100T57 PO (19:36)
[2021-11-14] MEDS ORDERED: TRAZ-256 PO (19:36)
[2021-11-14] MEDS ORDERED: METO50TA17 PO (19:36)
[2021-11-14] MEDS ORDERED: METF-438 PO (19:36)
[2021-11-14 19:37] VITALS: BP 153/94
== END 2021-11-14 19:42 | disposition home or self-care (01) ==
LOC: ER 14:58
DX: J40 Bronchitis, not specified as acute or chronic (principal); E11.9 Type 2 diabetes mellitus without complications; I10 Essential (primary) hypertension; F12.10 Cannabis abuse, uncomplicated; Z88.2 Allergy status to sulfonamides; Z88.5 Allergy status to narcotic agent; Z88.8 Allergy status to other drugs, medicaments and biological substances; Z20.822 Contact with and (suspected) exposure to COVID-19
CPT/HCPCS: 36415; 71045; 80053; 84145; 84484; 85025; 85379; 87502; 87503; 87635; 93005; 94640; 96374; 99285; C9803; J2930; 94760

== ENCOUNTER 2021-12-23 09:38 | Emergency (ER) | payer MEDICAID ==
[~2021-12-23] VITALS: Ht 167.6 cm; Wt 93.2 kg
[~2021-12-23 09:38] MED LIST changes: -ALBU6.7H9 INH; -ALBU8.5H17 IH; +AMLO10TA PO; -ANAS1TAB PO; -ASPI-611 PO; -CA C1TAB89 PO; -HYDR-4383 PO; +INSU100I31 SQ; -LANTUS SUBCUT; -LOSA100T3 PO; +LOSA100T57 PO; +METF-438 PO; +METO50TA17 PO; -MULT-342 PO; -OMEP20CA15 PO; +PANT-47 PO; -SERT-153 PO
[2021-12-23 09:54] VITALS: BP 147/81
[2021-12-23] MEDS ORDERED: hydrOXYzine 25 MG tablet PO ONE (11:05)
[2021-12-23] MEDS ORDERED: triamcinolone acetonide 40mg/ml inj IM ONE (11:05)
[2021-12-23] MEDS ORDERED: PRED10TA PO (11:18)
[2021-12-23] MEDS ORDERED: DOXE25CA3 PO (11:18)
== END 2021-12-23 11:55 | disposition home or self-care (01) ==
LOC: ER 09:38
DX: L50.0 Allergic urticaria (principal); T50.995A Adverse effect of other drugs, medicaments and biological substances, initial encounter; I10 Essential (primary) hypertension; E11.9 Type 2 diabetes mellitus without complications; F12.90 Cannabis use, unspecified, uncomplicated; Z87.19 Personal history of other diseases of the digestive system; Z85.3 Personal history of malignant neoplasm of breast; Z90.710 Acquired absence of both cervix and uterus; Z88.2 Allergy status to sulfonamides; Z88.8 Allergy status to other drugs, medicaments and biological substances; Z79.899 Other long term (current) drug therapy; Z79.4 Long term (current) use of insulin; Y92.89 Other specified places as the place of occurrence of the external cause
CPT/HCPCS: 96372; 99283; J3301; Q0177

== ENCOUNTER 2023-01-09 13:55 | Emergency (ER) | payer MEDICAID ==
[~2023-01-09] VITALS: Ht 167.6 cm; Wt 90.0 kg
[~2023-01-09 13:55] MED LIST changes: +DOXE25CA3 PO; -LOSA100T57 PO; +LOSA100T58 PO; +PRED10TA PO
[2023-01-09 14:42] VITALS: BP 150/86
== END 2023-01-09 15:43 | disposition home or self-care (01) ==
LOC: ER 13:56
DX: M25.562 Pain in left knee (principal); R22.42 Localized swelling, mass and lump, left lower limb; I10 Essential (primary) hypertension; E11.9 Type 2 diabetes mellitus without complications; F12.90 Cannabis use, unspecified, uncomplicated; Z90.710 Acquired absence of both cervix and uterus; Z85.9 Personal history of malignant neoplasm, unspecified; Z85.3 Personal history of malignant neoplasm of breast; Z88.2 Allergy status to sulfonamides; Z88.8 Allergy status to other drugs, medicaments and biological substances; Z79.4 Long term (current) use of insulin; Z79.899 Other long term (current) drug therapy; X50.0XXA Overexertion from strenuous movement or load, initial encounter; Y93.01 Activity, walking, marching and hiking; Y92.89 Other specified places as the place of occurrence of the external cause; Y99.8 Other external cause status
CPT/HCPCS: 73564; 99283